=== PATIENT | male | born 1970 | race Caucasian/White ===

== ENCOUNTER → 2017-02-28 | Outpatient (CLI) | payer OTHER ==
[~2017-02-28] MED LIST: CELEXA; CIPRO PO; IMMODIUM; NEXIUM PO
--- NOTE | ~2017-02-28 | MR61 ---
[facility]. [facility] A Service of [facility] RADIOLOGY TEXT RESULTS PATIENT: FILI CUNNINGHAM LOCATION: [facility] : 72 UNIT #: [id number] AGE: [address]: Humberto Urbano MD SEX: M ORDER DR: [id number] [address] [address] [id number] O MR#: [id number] Acc #: [id number] NAME: FILI CUNNINGHAM : 1970 SEX: M STUDY DATE/TIME: 02/28/2017 8:46 UNIT: [facility] ROOM: STUDY DESCRIPTION: MR Foot Wo Contrast Rt Attending Physician: Mario Urbano M.D. Referring Physician: Mario Urbano M.D. Ordering Physician: Mario Urbano M.D. Primary Care Physician: Huber Apple M.D. MRI CENTER REPORT This report is preliminary unless electronic signature is present. EXAM MRI of the right foot without contrast HISTORY 47-year-old male complains of dorsal lateral foot pain for 3 months. Clinical concern for fourth or fifth metatarsal stress fracture. Works as a fabrication mig welder. Complains of burning pain radiating across foot. FINDINGS Multiplanar multiecho imaging was performed of the right midfoot utilizing a high field magnet dedicated protocol. A gel capsule was placed over the dorsal lateral aspect of the foot. Examination demonstrates a marrow edema within the mid and proximal shaft of the fifth metatarsal and to a lesser extent within the base of the fourth metatarsal. Findings most suggestive of stress reaction. A very subtle linear transverse signal seen in the mid shaft of the fifth metatarsal could represent a very early stress fracture. Marrow edema at the base of the fourth metatarsal and within the surrounding soft tissues may be on the basis of underlying early arthritis, no erosive changes identified. Extensor and flexor tendons appear normal. A small cyst is seen along the lateral aspect of the cuboid measuring about 7 mm compatible with a ganglion cyst. Extensor and flexor tendons appear normal. The intrinsic musculature of the foot appears normal. No marrow edema noted within the cuboid. IMPRESSION 1. Marrow edema within the mid shaft and proximal aspect of the fifth metatarsal. This in combination with subtle linear T1 signal abnormality in the mid metatarsal shaft raises a concern for stress reaction or potentially very early stress fracture though no discrete cortical deformity is seen. 2. Small amount of edema base of the fourth metatarsal with some edema in the surrounding soft tissues. This could be related to altered biomechanical stress or early arthritic changes though no evidence of STS. [facility] A Service of [facility] RADIOLOGY TEXT RESULTS PATIENT: FILI CUNNINGHAM LOCATION: [facility] : 72 UNIT #: [id number] AGE: [address]: Humberto Urbano MD SEX: M ORDER DR: erosive change. 3. Small ganglion cyst lateral cuboid measuring about 7 mm of doubtful clinical significance. Dictated by... Arron Sanchez M.D. THIS IS AN ELECTRONICALLY VERIFIED REPORT Arron Sanchez M.D. at 03/01/2017 7:26 AM FADIA/isra TD: 02/28/2017 20:06 JOB #: [id number] MRI CENTER REPORT Page 1 of 1
== END | disposition home or self-care (01) ==
LOC: SMRI 07:57
DX: M79.671 Pain in right foot (principal); M67.471 Ganglion, right ankle and foot; R60.0 Localized edema
CPT/HCPCS: 73718